=== PATIENT | male | born 1985 | race Caucasian/White ===

== ENCOUNTER → 2017-02-10 | Outpatient (CLI) | payer BC ==
[~2017-02-10] MED LIST: Iopamidol 755 MG/ML 500 ML Multipack Bottle IVPUSH STA
--- NOTE | 2017-02-12 16:14 | CT ---
EXAM DATE: 02/10/17 PATIENT'S AGE: 31 Patient: NAMRATA PADILLA Facility: [place], [place] Site Site : 1985 Study: CT Abdomen [id number]/13/2017 1:01:19 PM Ordering Physician: TONIA Final Report: INDICATION: Chronic gastritis TECHNIQUE: CT abdomen acquired with IV and oral contrast. COMPARISON: None available FINDINGS: Lower chest: Unremarkable. Liver: Unremarkable. Spleen: Unremarkable. Pancreas: Unremarkable. Gallbladder and bile ducts: Unremarkable. Adrenal glands: Unremarkable. Kidneys: Unremarkable. GI tract: Unremarkable. Appendix is normal. Vascular structures: Unremarkable. Lymph nodes: Unremarkable. Miscellaneous: Unremarkable. No free air or significant free fluid. Bones: Unremarkable for age. IMPRESSION: Unremarkable CT of the abdomen and pelvis. Given the history, correlation with formal gastric evaluation is recommended. Dictated by Felice Fischer MD @ 02/11/2017 2:57:38 AM Dictated by: Felice Fischer MD @ 02/11/2017 02:57:43 (Electronic Signature) Report Signed by Proxy and Original Signed Document filed in the Medical Record. [facility]
== END ==
LOC: MW.DI 09:30
PROVIDERS: ATTEND Internal Medicine
DX: K29.30 Chronic superficial gastritis without bleeding (principal)
CPT/HCPCS: 74160; Q9967

== ENCOUNTER 2017-10-04 22:28 | Emergency (ER) | payer BC ==
[2017-10-04] MEDS ORDERED: Sodium Chloride 0.9% 1,000 ML IV ONE (22:42)
[2017-10-04] MEDS ORDERED: Ondansetron 4 MG/2 ML SDV IVPUSH ONE (22:42)
--- NOTE | 2017-10-04 22:47 | EDM.PDOC ---
ED HPI GENERAL MEDICAL PROBLEM - General Chief Complaint: Abdominal Pain Stated Complaint: PT HAS STOMACH PAINS Time Seen by Provider: 10/05/17 00:04 - History of Present Illness INITIAL COMMENTS - FREE TEXT/NARRATIVE: HISTORY AND PHYSICAL: History of present illness: Patient is a 32-year-old white male history of diverticulosis who presents with concern of left-sided abdominal pain worse over last several days he denies fever chills vomiting diarrhea or other concern. He's had no trauma denies history urolithiasis isn't no urinary symptoms Review of systems: As per history of present illness and below otherwise all systems reviewed and negative. Past medical history: As per history of present illness and as reviewed below otherwise noncontributory. Surgical history: As per history of present illness and as reviewed below otherwise noncontributory. Social history: No reported history of drug or alcohol abuse. Family history: As per history of present illness and as reviewed below otherwise noncontributory. Physical exam: HEENT: Atraumatic, normocephalic, pupils reactive, negative for conjunctival pallor or scleral icterus, mucous membranes moist, throat clear, neck supple, nontender, trachea midline. Lungs: Clear to auscultation, breath sounds equal bilaterally, chest nontender. Heart: S1S2, regular, negative for clicks, rubs, or JVD. Abdomen: Soft, nondistended, no localized tenderness no rebound no guarding. Negative for masses or hepatosplenomegaly. Negative for costovertebral tenderness. Pelvis: Stable nontender. Genitourinary: Deferred. Rectal: Deferred. Extremities: Atraumatic, negative for cords or calf pain. Neurovascular unremarkable. Neuro: Awake, alert, oriented. Cranial nerves II through XII unremarkable. Cerebellum unremarkable. Motor and sensory unremarkable throughout. Exam nonfocal. Diagnostics: CBC CMP UA CT abdomen and pelvis Therapeutics: saline 1 L bolus Zofran 4 mg IV when necessary Impression: #1 left-sided abdominal pain #2 history of diverticulosis Definitive disposition and diagnosis as appropriate pending reevaluation and review of above. abdomen Pain Score (Numeric/FACES): 5 - Related Data Allergies Allergy/AdvReac Type Severity Reaction Status Date / Time No Known Allergies Allergy Verified 10/04/17 22:35 Home Meds: Home Meds . [No Known Home Meds] 05/29/16 [History] Past Medical History Other HEENT History: wears glasses/contacts Cardiovascular History: Reports: None Respiratory History: Reports: None Gastrointestinal History: Reports: GERD, Hemorrhoids Genitourinary History: Reports: None Musculoskeletal History: Reports: None Neurological History: Reports: None Psychiatric History: Reports: None Endocrine/Metabolic History: Reports: None Hematologic History: Reports: None Immunologic History: Reports: None Oncologic (Cancer) History: Reports: None Dermatologic History: Reports: None - Past Surgical History HEENT Surgical History: Reports: Oral Surgery, Tonsillectomy Social & Family History - Tobacco Use Smoking Status *Q: Never Smoker - Alcohol Use Days Per Week of Alcohol Use: 2 - Recreational Drug Use Recreational Drug Use: No Drug Use in Last 12 Months: No ED ROS GENERAL - Review of Systems Review Of Systems: ROS reveals no pertinent complaints other than HPI. ED EXAM, GENERAL - Physical Exam Exam: See Below (See dictation) Course - Vital Signs Last Recorded V/S: Last Vital Signs Temp 36.8 C 10/04/17 23:48 Pulse 86 10/04/17 23:48 Resp 18 10/04/17 23:48 BP 107/68 10/04/17 23:48 Pulse Ox 96 10/04/17 23:48 - Orders/Labs/Meds Orders: Active Orders 24 hr Category Date Time Status Abdomen Pelvis wo Cont [CT] Stat Exams 10/04/17 22:42 Taken UA W/MICROSCOPIC [URIN] Stat Lab 10/04/17 22:42 Uncollected Labs: Laboratory Tests 10/04/17 10/04/17 Range/Units 22:49 22:49 WBC 6.87 (4.0-11.0) K/uL RBC 5.03 (4.50-5.90) M/uL Hgb 15.5 (13.0-17.0) g/dL Hct 43.3 (38.0-50.0) % MCV 86.1 (80.0-98.0) fL MCH 30.8 (27.0-32.0) pg MCHC 35.8 (31.0-37.0) g/dL RDW Std Deviation 40.4 (28.0-62.0) fl RDW Coeff of Michael 13 (11.0-15.0) % Plt Count 199 (150-400) K/uL MPV 10.00 (7.40-12.00) fL Neut % (Auto) 67.2 (48.0-80.0) % Lymph % (Auto) 21.8 (16.0-40.0) % Mills % (Auto) 10.3 (0.0-15.0) % Eos % (Auto) 0.4 (0.0-7.0) % Baso % (Auto) 0.3 (0.0-1.5) % Neut # (Auto) 4.6 (1.4-5.7) K/uL Lymph # (Auto) 1.5 (0.6-2.4) K/uL Mills # (Auto) 0.7 (0.0-0.8) K/uL Eos # (Auto) 0.0 (0.0-0.7) K/uL Baso # (Auto) 0.0 (0.0-0.1) K/uL Nucleated RBC % 0.0 /100WBC Nucleated RBCs # 0 K/uL Sodium 135 L (136-146) mmol/L Potassium 3.7 (3.5-5.1) mmol/L Chloride 99 (98-110) mmol/L Carbon Dioxide 24 (21-31) mmol/L BUN 9 (6.0-23.0) mg/dL Creatinine 1.2 (0.6-1.5) mg/dL Est Cr Clr Drug Dosing 81.86 mL/min Estimated GFR (MDRD) > 60.0 ml/min Glucose 92 (60-110) mg/dL Calcium 9.8 (8.8-10.8) mg/dL Total Bilirubin 1.8 H (0.1-1.5) mg/dL AST 22 (5-40) IU/L ALT 17 (8-54) IU/L Alkaline Phosphatase 79 (40-150) Total Protein 7.8 (6.0-8.0) g/dL Albumin 4.6 (3.5-5.0) g/dL Globulin 3.2 (2.0-3.5) g/dL Albumin/Globulin Ratio 1.4 (1.3-2.8) Meds: Medications Discontinued Medications Generic Name Dose Route Start Last Admin Trade Name Freq PRN Reason Stop Dose Admin Sodium Chloride 1,000 mls @ 999 mls/hr 10/04/17 22:42 10/04/17 22:53 Normal Saline IV 10/04/17 23:42 999 mls/hr .Bolus ONE Administration Ondansetron HCl 4 mg 10/04/17 22:42 10/04/17 22:53 Zofran IVPUSH 10/04/17 22:43 4 mg ONETIME ONE Administration Departure - Departure Time of Disposition: 00:04 Disposition: Home, Self-Care 01 Condition: Good Clinical Impression: Abdominal pain - Discharge Information Referrals: PCP,None [Primary Care Provider] - Forms: ED Department Discharge Additional Instructions: The following information is given to patients seen in the emergency department who are being discharged to home. This information is to outline your options for follow-up care. We provide all patients seen in our emergency department with a follow-up referral. The need for follow-up, as well as the timing and circumstances, are variable depending upon the specifics of your emergency department visit. If you don't have a primary care physician on staff, we will provide you with a referral. We always advise you to contact your personal physician following an emergency department visit to inform them of the circumstance of the visit and for follow-up with them and/or the need for any referrals to a consulting specialist. The emergency department will also refer you to a specialist when appropriate. This referral assures that you have the opportunity for followup care with a specialist. All of these measure are taken in an effort to provide you with optimal care, which includes your followup. Under all circumstances we always encourage you to contact your private physician who remains a resource for coordinating your care. When calling for followup care, please make the office aware that this follow-up is from your recent emergency room visit. If for any reason you are refused follow-up, please contact the [facility] emergency department at and asked to speak to the emergency department charge nurse. Follow-up primary medical doctor and/or gastroenterology as discussed return as needed as discussed - My Orders Last 24 Hours: My Active Orders 10/04/17 22:42 Abdomen Pelvis wo Cont [CT] Stat UA W/MICROSCOPIC [URIN] Stat - Assessment/Plan Last 24 Hours: My Active Orders 10/04/17 22:42 Abdomen Pelvis wo Cont [CT] Stat UA W/MICROSCOPIC [URIN] Stat
[2017-10-04 23:20] LABS: CHLORIDE,CL 99 mmol/L (98-110); SODIUM,NA 135 mmol/L (136-146)
[2017-10-05 00:31] VITALS: BP 119/73
--- NOTE | 2017-10-06 10:19 | CT ---
EXAM DATE: 10/04/17 PATIENT'S AGE: 32 Patient: NAMRATA PADILLA Facility: [place], [place] Site . Site : 1985 Study: CT Abdomen/Pelvis [id number]/4/2017 11:21:15 PM Ordering Physician: Doctor Howard Final Report: INDICATION: Bilateral lower abdominal pain and vomiting for 3 days. 32-year-old male. TECHNIQUE: CT abdomen and pelvis without contrast. COMPARISON: CT study dated 02/10/2017. FINDINGS: Any [employer] CT images: Nonobstructive bowel gas pattern Lower chest: Unremarkable. Liver: Unremarkable. Spleen: Unremarkable. Pancreas: Unremarkable. Gallbladder and bile ducts: Unremarkable. Adrenal glands: Unremarkable. Kidneys: Unremarkable. No kidney or ureteral stones and no hydronephrosis. GI tract: Unremarkable. Appendix is normal. Vascular structures: Unremarkable. Lymph nodes: Unremarkable. Miscellaneous: Unremarkable. No free air or significant free fluid. Pelvic Organs: Unremarkable. Bones: Unremarkable for age. IMPRESSION: 1. Negative CT of the abdomen and pelvis. No renal or ureteral calculi. Normal appendix is well visualized. No clear etiology identified for patient`s clinical symptoms. Dictated by Lenard Solis MD @ 10/04/2017 11:54:07 PM Dictated by: Lenard Solis MD @ 10/04/2017 23:54:14 (Electronic Signature) Report Signed by Proxy. [facility]
== END 2017-10-05 00:30 | disposition home or self-care (01) ==
LOC: MW.ED 22:28
DX: R10.9 Unspecified abdominal pain (principal); Z87.19 Personal history of other diseases of the digestive system
CPT/HCPCS: 74176; 80053; 85025; 96361; 96374; 99284; J2405; J7040; 99283

== ENCOUNTER 2022-11-13 23:15 | Emergency (ER) | payer BC ==
[2022-11-14] MEDS: Lidocaine 2% Viscous Solution 15 ML UD PO ONE (00:02)
[2022-11-14] MEDS: Lidocaine 2% Viscous Solution 15 ML UD ONE (00:02)
[2022-11-14 00:06] VITALS: BP 123/68; PULSE 93
== END 2022-11-14 00:06 | disposition home or self-care (01) ==
LOC: MW.ED 23:15
DX: K64.8 Other hemorrhoids (principal); Z79.899 Other long term (current) drug therapy
CPT/HCPCS: 99282; A9270